=== PATIENT | female | born 1975 | race Caucasian/White ===

== ENCOUNTER 2018-09-12 20:51 | Emergency (ER) | payer MEDICARE, MEDICAID ==
[~2018-09-12] VITALS: Ht 185.4 cm; Wt 113.0 kg
[2018-09-12 20:53] VITALS: BP 175/88
[2018-09-12] MEDS ORDERED: POLY10DR OP (23:39)
== END 2018-09-12 23:48 | disposition home or self-care (01) ==
LOC: ER 20:51
DX: H10.89 Other conjunctivitis (principal); G89.29 Other chronic pain; F32.9 Major depressive disorder, single episode, unspecified; Z90.49 Acquired absence of other specified parts of digestive tract
CPT/HCPCS: 99283

== ENCOUNTER 2020-04-05 12:09 | Emergency (ER) | payer MEDICARE, MEDICAID ==
[~2020-04-05] VITALS: Ht 185.4 cm; Wt 110.4 kg
[~2020-04-05 12:09] MED LIST: POLY10DR OP
[2020-04-05 14:34] LABS: BASOPHILS # (AUTO) 0.1 X10'3 (0-0.2); BASOPHILS % (AUTO) 0.7 % (0-1); EOSINOPHILS # (AUTO) 0.1 X10'3 (0-0.9); EOSINOPHILS % (AUTO) 1.1 % (0-6); HEMATOCRIT 26.8 % (35.0-45.0); HEMOGLOBIN 8.1 g/dl (12.0-16.0); LYMPHOCYTES # (AUTO) 2.1 X10'3 (1.1-4.8); LYMPHOCYTES % (AUTO) 19.3 % (21-51); MEAN CORPUSCULAR HEMOGLOBIN 20.2 PG (27.0-31.0); MEAN CORPUSCULAR HGB CONC 30.1 g/dL (33.0-36.5); MEAN PLATELET VOLUME 7.7 FL (7.4-10.4); MONOCYTES # (AUTO) 0.7 X10'3 (0-0.9); MONOCYTES % (AUTO) 6.2 % (2-12); NEUTROPHILS # (AUTO) 7.8 X10'3 (1.8-7.7); NEUTROPHILS % (AUTO) 72.7 % (42-75); PLATELET COUNT 290 X10'3 (140-440); RED BLOOD COUNT 3.99 X10'6 (4.20-5.60); RED CELL DISTRIBUTION WIDTH 19.3 % (11.5-14.5); WHITE BLOOD COUNT 10.7 X10'3 (4.5-11.0)
[2020-04-05 14:39] VITALS: BP 120/78
[2020-04-05 14:47] LABS: ALANINE AMINOTRANSFERASE 13 U/L (12-78); ALBUMIN 2.7 G/DL (3.4-5.0); ALBUMIN/GLOBULIN RATIO 0.6 (1.1-1.5); ALKALINE PHOSPHATASE 95 IU/L (46-116); ANION GAP 10 (8-16); ASPARTATE AMINO TRANSFERASE 9 U/L (10-37); BILIRUBIN,TOTAL 0.3 MG/DL (0.1-1.0); BLOOD UREA NITROGEN 14 MG/DL (7-18); BUN/CREATININE RATIO 24.1 (6.6-38.0); CALCIUM 8.2 MG/DL (8.5-10.1); CHLORIDE 103 MMOL/L (99-107); CREATININE 0.58 MG/DL (0.40-0.90); GLUCOSE 86 MG/DL (70-104); SODIUM 137 MMOL/L (135-145); TOTAL CARBON DIOXIDE 24.4 MMOL/L (24-32); TOTAL PROTEIN 6.9 G/DL (6.4-8.2); eGFR > 90 ML/MIN
[2020-04-05 14:49] LABS: POTASSIUM 2.9 MMOL/L (3.5-5.1)
[2020-04-05] MEDS ORDERED: potassium 10mEq/100ml NS w/LIDOcaine (10mg/bag) IV ONE (15:20)
[2020-04-05] MEDS ORDERED: potassium Cl 10 mEq/100mL bag IV ONE (15:20)
[2020-04-05 15:36] LABS: MAGNESIUM 1.9 MG/DL (1.5-2.4)
[2020-04-05 16:00] LABS: ANISOCYTOSIS 2+; MICROCYTOSIS 2+; PLATELET ESTIMATE NORMAL
[2020-04-05 16:01] LABS: HYPOCHROMASIA 2+; SCHISTOCYTES FEW
[2020-04-05] MEDS ORDERED: CLIN300C70 PO (16:05)
[2020-04-05] MEDS ORDERED: potassium Cl 20 mEq SR tablet PO ONE (16:10)
== END 2020-04-05 16:33 | disposition home or self-care (01) ==
LOC: ER 12:10
DX: L03.116 Cellulitis of left lower limb (principal); M79.662 Pain in left lower leg; M79.89 Other specified soft tissue disorders; G89.29 Other chronic pain; F32.9 Major depressive disorder, single episode, unspecified; Z86.2 Personal history of diseases of the blood and blood-forming organs and certain disorders involving the immune mechanism; Z90.49 Acquired absence of other specified parts of digestive tract; Z98.890 Other specified postprocedural states; Z79.2 Long term (current) use of antibiotics; Z79.899 Other long term (current) drug therapy
CPT/HCPCS: 36415; 80053; 83735; 85025; 93971; 99284

== ENCOUNTER 2021-03-11 06:53 | Emergency (ER) | payer MEDICARE, MEDICAID ==
[~2021-03-11] VITALS: Ht 185.4 cm; Wt 113.6 kg
[2021-03-11] MEDS ORDERED: cephalexin 500mg capsule PO ONE (07:20)
[2021-03-11] MEDS ORDERED: CEPH500C2 PO (09:29)
[2021-03-11 09:44] VITALS: BP 150/79
== END 2021-03-11 09:47 | disposition home or self-care (01) ==
LOC: ER 06:53
DX: L03.115 Cellulitis of right lower limb (principal); G89.29 Other chronic pain; D64.9 Anemia, unspecified; Z90.49 Acquired absence of other specified parts of digestive tract; Z98.890 Other specified postprocedural states; Z98.891 History of uterine scar from previous surgery; Z98.84 Bariatric surgery status; Z79.2 Long term (current) use of antibiotics; Z79.899 Other long term (current) drug therapy
CPT/HCPCS: 93971; 99284

== ENCOUNTER 2021-03-24 10:12 | Emergency (ER) | payer MEDICARE, MEDICAID ==
[~2021-03-24] VITALS: Ht 185.4 cm; Wt 108.2 kg
[~2021-03-24 10:12] MED LIST changes: +CEPH500C2 PO
[2021-03-24 10:50] VITALS: BP 155/96
[2021-03-24] MEDS ORDERED: CEPH-585 PO (11:29)
--- NOTE | 2021-03-24 12:23 | NUR ---
Patient seen and assessed by provider.
== END 2021-03-24 12:23 | disposition home or self-care (01) ==
LOC: ER 10:12
DX: L03.115 Cellulitis of right lower limb (principal); G89.29 Other chronic pain; Z86.2 Personal history of diseases of the blood and blood-forming organs and certain disorders involving the immune mechanism; Z90.49 Acquired absence of other specified parts of digestive tract; Z98.891 History of uterine scar from previous surgery; Z98.84 Bariatric surgery status; Z98.890 Other specified postprocedural states; Z79.2 Long term (current) use of antibiotics; Z79.899 Other long term (current) drug therapy
CPT/HCPCS: 99283

== ENCOUNTER 2022-04-05 09:31 | Emergency (ER) | payer MEDICARE, MEDICAID ==
[~2022-04-05] VITALS: Ht 185.4 cm; Wt 122.7 kg
[~2022-04-05 09:31] MED LIST changes: -CEPH500C2 PO
[2022-04-05 09:46] VITALS: BP 137/98
[2022-04-05] MEDS ORDERED: ketorolac trometh inj. 60 MG/2 ML VIAL IM ONE (10:55)
== END 2022-04-05 11:15 | disposition home or self-care (01) ==
LOC: ER 09:31
DX: S92.505A Nondisplaced unspecified fracture of left lesser toe(s), initial encounter for closed fracture (principal); G89.29 Other chronic pain; Z90.49 Acquired absence of other specified parts of digestive tract; Z98.890 Other specified postprocedural states; X58.XXXA Exposure to other specified factors, initial encounter; Y93.89 Activity, other specified; Y92.89 Other specified places as the place of occurrence of the external cause; Y99.8 Other external cause status
CPT/HCPCS: 73660; 96372; 99283; J1885; L3260

== ENCOUNTER 2022-06-06 17:18 | Emergency (ER) | payer MEDICARE, MEDICAID ==
[~2022-06-06] VITALS: Ht 185.4 cm; Wt 115.5 kg
[2022-06-06 17:40] VITALS: BP 139/100
[2022-06-06 18:09] LABS: BASOPHILS # (AUTO) 0.1 X10'3 (0-0.2); BASOPHILS % (AUTO) 0.6 % (0-1); EOSINOPHILS # (AUTO) 0.1 X10'3 (0-0.9); EOSINOPHILS % (AUTO) 1.1 % (0-6); HEMATOCRIT 26.9 % (35.0-45.0); HEMOGLOBIN 7.8 g/dl (12.0-16.0); LYMPHOCYTES # (AUTO) 1.9 X10'3 (1.1-4.8); MEAN CORPUSCULAR HEMOGLOBIN 18.1 PG (27.0-31.0); MEAN CORPUSCULAR HGB CONC 29.1 g/dL (33.0-36.5); MEAN CORPUSCULAR VOLUME 62.1 FL (78-98); MEAN PLATELET VOLUME 8.4 FL (7.4-10.4); MONOCYTES # (AUTO) 0.5 X10'3 (0-0.9); MONOCYTES % (AUTO) 5.5 % (2-12); NEUTROPHILS # (AUTO) 6.4 X10'3 (1.8-7.7); NEUTROPHILS % (AUTO) 71.8 % (42-75); PLATELET COUNT 349 X10'3 (140-440); RED BLOOD COUNT 4.33 X10'6 (4.20-5.60); RED CELL DISTRIBUTION WIDTH 20.9 % (11.5-14.5)
[2022-06-06 18:20] LABS: ALANINE AMINOTRANSFERASE 16 U/L (12-78); ALBUMIN/GLOBULIN RATIO 0.8 (1.1-1.5); ALKALINE PHOSPHATASE 94 IU/L (46-116); ANION GAP 8 (8-16); ASPARTATE AMINO TRANSFERASE 11 U/L (10-37); BILIRUBIN,TOTAL 0.2 MG/DL (0.1-1.0); BLOOD UREA NITROGEN 12 MG/DL (7-18); BUN/CREATININE RATIO 26.1 (6.6-38.0); CALCIUM 8.7 MG/DL (8.5-10.1); CHLORIDE 103 MMOL/L (99-107); CREATININE 0.46 MG/DL (0.40-0.90); GLUCOSE 89 MG/DL (70-104); LIPASE < 50 U/L (73-393); POTASSIUM 3.3 MMOL/L (3.5-5.1); SODIUM 139 MMOL/L (135-145); TOTAL CARBON DIOXIDE 27.9 MMOL/L (24-32); TOTAL PROTEIN 6.8 G/DL (6.4-8.2); eGFR > 90 ML/MIN
[2022-06-06 19:07] LABS: ANISOCYTOSIS 3+; MICROCYTOSIS 2+; PLATELET ESTIMATE NORMAL
[2022-06-06 19:09] LABS: HYPOCHROMASIA 2+; LARGE PLATELETS FEW; POLYCHROMASIA FEW; SCHISTOCYTES FEW
[2022-06-06 19:14] LABS: CLARITY,URINE SLIGHTLY CLOUDY (Clear); COLOR,URINE YELLOW (Yellow); GLUCOSE, URINE NEGATIVE (Neg); KETONES,URINE NEGATIVE (Neg); LEUKOCYTE ESTERASE ,URINE TRACE (Neg); NITRITES, URINE NEGATIVE (Neg); OCCULT BLOOD,URINE LARGE (Neg); PROTEIN,URINE TRACE mg/dl (Neg); URINE HCG NEGATIVE (NEG); UROBILINOGEN,URINE 0.2 E.U/dL (0.2-1.0)
[2022-06-06 19:18] LABS: UA COLLECTION TYPE CLN CATCH MIDSTREAM
[2022-06-06 19:26] LABS: MUCUS STRANDS MODERATE /LPF (Neg); RBC,URINE TNTC /HPF (0-2); SQUAMOUS EPITHELIAL CELL,UR MANY /LPF (FEW)
[2022-06-06 19:28] LABS: BACTERIA,URINE 1+ /HPF (Neg)
[2022-06-06 19:29] LABS: TRICHOMONAS,URINE FEW /HPF (NEGATIVE)
[2022-06-06 19:31] LABS: TRANSITIONAL EPI CELLS,URINE FEW /HPF
--- NOTE | 2022-06-06 19:36 | NUR ---
Lab rejected UA for culture due to "dirty catch".
== END 2022-06-06 20:14 | disposition left against medical advice (07) ==
LOC: ER 17:19
DX: K59.00 Constipation, unspecified (principal); Z53.21 Procedure and treatment not carried out due to patient leaving prior to being seen by health care provider
CPT/HCPCS: 36415; 80053; 81001; 81025; 83690; 85008; 85025

== ENCOUNTER 2022-11-02 03:41 | Emergency (ER) | payer MEDICARE, MEDICAID ==
[~2022-11-02] VITALS: Ht 185.4 cm; Wt 111.4 kg
[2022-11-02 03:53] VITALS: BP 197/103
[2022-11-02] MEDS ORDERED: METO-395 PO (04:07)
[2022-11-02] MEDS ORDERED: ALBU90AE INH (04:07)
== END 2022-11-02 04:15 ==
LOC: ER 03:41
DX: I10 Essential (primary) hypertension (principal); G89.29 Other chronic pain; F32.9 Major depressive disorder, single episode, unspecified; Z76.1 Encounter for health supervision and care of foundling; Z90.49 Acquired absence of other specified parts of digestive tract; Z79.899 Other long term (current) drug therapy
CPT/HCPCS: 99283

== ENCOUNTER 2023-01-15 13:49 | Emergency (ER) | payer MEDICARE, MEDICAID ==
[~2023-01-15] VITALS: Ht 185.4 cm; Wt 106.8 kg
[~2023-01-15 13:49] MED LIST changes: +ALBU90AE INH; +METO-395 PO
[2023-01-15 14:36] LABS: BASOPHILS # (AUTO) 0.1 X10'3 (0-0.2); BASOPHILS % (AUTO) 1.3 % (0-1); EOSINOPHILS # (AUTO) 0.1 X10'3 (0-0.9); EOSINOPHILS % (AUTO) 1.6 % (0-6); HEMOGLOBIN 7.4 g/dl (12.0-16.0); LYMPHOCYTES # (AUTO) 2.5 X10'3 (1.1-4.8); MEAN CORPUSCULAR HEMOGLOBIN 18.6 PG (27.0-31.0); MEAN CORPUSCULAR HGB CONC 29.6 g/dL (33.0-36.5); MEAN CORPUSCULAR VOLUME 62.7 FL (78-98); MEAN PLATELET VOLUME 8.6 FL (7.4-10.4); MONOCYTES # (AUTO) 0.3 X10'3 (0-0.9); MONOCYTES % (AUTO) 4.9 % (2-12); NEUTROPHILS # (AUTO) 3.4 X10'3 (1.8-7.7); NEUTROPHILS % (AUTO) 53.2 % (42-75); PLATELET COUNT 250 X10'3 (140-440); RED BLOOD COUNT 3.99 X10'6 (4.20-5.60); RED CELL DISTRIBUTION WIDTH 19.9 % (11.5-14.5); WHITE BLOOD COUNT 6.4 X10'3 (4.5-11.0)
[2023-01-15 14:50] LABS: ALANINE AMINOTRANSFERASE 17 U/L (12-78); ALBUMIN 3.2 G/DL (3.4-5.0); ALKALINE PHOSPHATASE 98 IU/L (46-116); ANION GAP 8 (8-16); ASPARTATE AMINO TRANSFERASE 12 U/L (10-37); BILIRUBIN,TOTAL 0.2 MG/DL (0.1-1.0); BLOOD UREA NITROGEN 13 MG/DL (7-18); BUN/CREATININE RATIO 28.9 (10.0-20.0); CALCIUM 8.3 MG/DL (8.5-10.1); CHLORIDE 105 MMOL/L (99-107); CREATININE 0.45 MG/DL (0.40-0.90); GLUCOSE 100 MG/DL (70-104); POTASSIUM 4.2 MMOL/L (3.5-5.1); SODIUM 140 MMOL/L (135-145); TOTAL CARBON DIOXIDE 27.3 MMOL/L (24-32); TOTAL PROTEIN 6.5 G/DL (6.4-8.2); eGFR > 90 ML/MIN
[2023-01-15 15:01] LABS: ETHANOL < 0.010 GM/DL (0.0-0.010)
[2023-01-15 15:07] LABS: PLATELET ESTIMATE NORMAL
[2023-01-15 15:08] LABS: ANISOCYTOSIS 2+; HYPOCHROMASIA 1+; LARGE PLATELETS FEW; MICROCYTOSIS 2+
[2023-01-15 15:09] LABS: STOMATOCYTES FEW
[2023-01-15 15:10] LABS: POIKILOCYTOSIS 1+
[2023-01-15 15:15] LABS: CLARITY,URINE CLEAR (Clear); COLOR,URINE YELLOW (Yellow); GLUCOSE, URINE NEGATIVE (Neg); KETONES,URINE NEGATIVE (Neg); LEUKOCYTE ESTERASE ,URINE SMALL (Neg); NITRITES, URINE NEGATIVE (Neg); OCCULT BLOOD,URINE NEGATIVE (Neg); PROTEIN,URINE NEGATIVE (Neg)
[2023-01-15 15:20] LABS: URINE HCG NEGATIVE (NEG)
[2023-01-15 15:22] LABS: UA COLLECTION TYPE CLN CATCH MIDSTREAM
[2023-01-15 15:24] LABS: RBC,URINE NONE SEEN /HPF (0-2); URINE AMPHETAMINE SCREEN NEGATIVE (Neg); URINE BARBITUATE SCREEN NEGATIVE (Neg); URINE BENZODIAZEPINES SCREEN NEGATIVE (Neg); URINE CANNABINOID SCREEN NEGATIVE (Neg); URINE COCAINE SCREEN NEGATIVE (Neg); URINE METHADONE SCREEN NEGATIVE (Neg); URINE OPIATE SCREEN NEGATIVE (Neg); URINE PHENCYCLIDINE SCREEN NEGATIVE (Neg); WBC,URINE 20-30 /HPF (0-4)
[2023-01-15 15:25] LABS: BACTERIA,URINE 1+ /HPF (Neg); MUCUS STRANDS FEW /LPF (Neg); SQUAMOUS EPITHELIAL CELL,UR FEW /LPF (FEW)
[2023-01-15] MEDS ORDERED: CEPH250T PO (16:38)
[2023-01-15 18:04] VITALS: BP 142/92
== END 2023-01-15 18:28 | disposition home or self-care (01) ==
LOC: ER 13:49
DX: R07.9 Chest pain, unspecified (principal); N39.0 Urinary tract infection, site not specified; F41.9 Anxiety disorder, unspecified; I10 Essential (primary) hypertension; G89.29 Other chronic pain; F32.A Depression, unspecified; F15.10 Other stimulant abuse, uncomplicated; Z79.899 Other long term (current) drug therapy; Z86.2 Personal history of diseases of the blood and blood-forming organs and certain disorders involving the immune mechanism
CPT/HCPCS: 36415; 71045; 80053; 80305; 80320; 81001; 81025; 83880; 84484; 85008; 85025; 87088; 93005; 99285

== ENCOUNTER 2023-01-18 10:15 | Emergency (ER) | payer MEDICARE, MEDICAID ==
[~2023-01-18] VITALS: Ht 185.4 cm; Wt 106.8 kg
[~2023-01-18 10:15] MED LIST changes: +CEPH250T PO
[2023-01-18] MEDS ORDERED: LORA-269 PO (11:09)
[2023-01-18] MEDS ORDERED: LORazepam 1 MG tablet PO ONE (11:15)
--- NOTE | 2023-01-18 13:48 | NUR ---
Received order for consult. Patient was discharged. No number in patients chart for me to call and follow up.
== END 2023-01-18 11:22 | disposition home or self-care (01) ==
LOC: ER 10:16
DX: F41.9 Anxiety disorder, unspecified (principal); R07.9 Chest pain, unspecified; I10 Essential (primary) hypertension; G89.29 Other chronic pain; F31.9 Bipolar disorder, unspecified; Z86.2 Personal history of diseases of the blood and blood-forming organs and certain disorders involving the immune mechanism; F15.10 Other stimulant abuse, uncomplicated; Z56.0 Unemployment, unspecified; Z79.899 Other long term (current) drug therapy
CPT/HCPCS: 99283

== ENCOUNTER 2024-09-11 16:42 | Emergency (ER) | payer MEDICARE, MEDICAID ==
[~2024-09-11] VITALS: Ht 185.4 cm; Wt 103.0 kg
[~2024-09-11 16:42] MED LIST changes: -CEPH250T PO; +LORA-269 PO
[2024-09-11 17:46] LABS: BASOPHILS # (AUTO) 0.1 X10'3 (0-0.2); EOSINOPHILS % (AUTO) 0.1 % (0-6); HEMATOCRIT 31.4 % (35.0-45.0); HEMOGLOBIN 9.2 g/dl (12.0-16.0); LYMPHOCYTES # (AUTO) 0.9 X10'3 (1.1-4.8); LYMPHOCYTES % (AUTO) 9.3 % (21-51); MEAN CORPUSCULAR HEMOGLOBIN 17.9 PG (27.0-31.0); MEAN CORPUSCULAR HGB CONC 29.4 g/dL (33.0-36.5); MEAN PLATELET VOLUME 8.7 FL (7.4-10.4); MONOCYTES # (AUTO) 0.6 X10'3 (0-0.9); MONOCYTES % (AUTO) 6.1 % (2-12); NEUTROPHILS # (AUTO) 8.2 X10'3 (1.8-7.7); NEUTROPHILS % (AUTO) 83.5 % (42-75); PLATELET COUNT 226 X10'3 (140-440); RED BLOOD COUNT 5.14 X10'6 (4.20-5.60); RED CELL DISTRIBUTION WIDTH 20.5 % (11.5-14.5); WHITE BLOOD COUNT 9.8 X10'3 (4.5-11.0)
[2024-09-11 18:08] LABS: ALANINE AMINOTRANSFERASE 17 U/L (12-78); ALBUMIN 2.8 G/DL (3.4-5.0); ALBUMIN/GLOBULIN RATIO 0.7 (1.1-1.5); ALKALINE PHOSPHATASE 96 IU/L (46-116); ANION GAP 9 (8-16); ASPARTATE AMINO TRANSFERASE 13 U/L (10-37); BILIRUBIN,TOTAL 0.3 MG/DL (0.1-1.0); BLOOD UREA NITROGEN 17 MG/DL (7-18); BUN/CREATININE RATIO 30.9 (10.0-20.0); CALCIUM 8.1 MG/DL (8.5-10.1); CHLORIDE 101 MMOL/L (99-107); CREATININE 0.55 MG/DL (0.40-0.90); GLUCOSE 114 MG/DL (70-104); LIPASE 14 U/L (16-77); POTASSIUM 3.3 MMOL/L (3.5-5.1); SODIUM 133 MMOL/L (135-145); TOTAL CARBON DIOXIDE 23.2 MMOL/L (24-32); TOTAL PROTEIN 6.7 G/DL (6.4-8.2); eCRCL 149 ML/MIN; eGFR > 90 ML/MIN
[2024-09-11 18:10] LABS: ANISOCYTOSIS 3+; HYPOCHROMASIA 2+; MICROCYTOSIS 2+; PLATELET ESTIMATE NORMAL; TOTAL CELLS COUNTED 100
[2024-09-11 18:11] LABS: ELLIPTOCYTES FEW; POLYCHROMASIA FEW; SCHISTOCYTES FEW
[2024-09-11 19:04] LABS: BILIRUBIN,URINE NEGATIVE (Neg); CLARITY,URINE CLEAR (Clear); COLOR,URINE YELLOW (Yellow); GLUCOSE, URINE NEGATIVE (Neg); KETONES,URINE NEGATIVE (Neg); LEUKOCYTE ESTERASE ,URINE TRACE (Neg); NITRITES, URINE POSITIVE (Neg); OCCULT BLOOD,URINE NEGATIVE (Neg); PROTEIN,URINE 30 mg/dl (Neg); UROBILINOGEN,URINE 0.2 E.U/dL (0.2-1.0)
[2024-09-11 19:14] LABS: UA COLLECTION TYPE NON-SPECIFIED
[2024-09-11 19:18] LABS: BACTERIA,URINE 3+ /HPF (Neg); RBC,URINE 0-2 /HPF (0-2); SQUAMOUS EPITHELIAL CELL,UR MANY /LPF (FEW)
[2024-09-11] MEDS ORDERED: iohexol 300mg/ml 100ml inj. ONE (21:00)
[2024-09-11 21:54] LABS: HCG SERUM QL NEGATIVE
[2024-09-11] MEDS: morphine 4 MG/ML inj SYRINge IV ONE (23:50)
[2024-09-11] MEDS: CefTRIAXone/D5W-Rocephin 1gm 50 ML IV STA (23:50)
[2024-09-11] MEDS: normal saline 1000ml 1,000 ML IV ONE (23:51)
[2024-09-12] MEDS: normal saline 1000ml 1,000 ML IV ONE ×2 (01:39→01:43)
[2024-09-12] MEDS ORDERED: CEFD300C3 PO (02:11)
[2024-09-12 02:41] VITALS: BP 101/60; PULSE 89; RESP 18; TEMP 98.5; O2SAT 96
== END 2024-09-12 02:44 | disposition home or self-care (01) ==
LOC: ER 16:42
DX: N39.0 Urinary tract infection, site not specified (principal); R10.84 Generalized abdominal pain; I10 Essential (primary) hypertension; G89.29 Other chronic pain; F41.9 Anxiety disorder, unspecified; F32.89 Other specified depressive episodes; F15.90 Other stimulant use, unspecified, uncomplicated; D64.9 Anemia, unspecified; F10.90 Alcohol use, unspecified, uncomplicated; Z79.899 Other long term (current) drug therapy; Z90.49 Acquired absence of other specified parts of digestive tract; Z56.0 Unemployment, unspecified; Y90.9 Presence of alcohol in blood, level not specified
CPT/HCPCS: 36415; 74177; 80053; 81001; 83605; 83690; 84703; 85007; 85025; 87040; 96361; 96365; 96375; 99285; J0696; J2270; J7030; Q9967